=== PATIENT | male | born 1970 | race Hispanic/Latino ===

== ENCOUNTER 2018-02-19 12:54 | Emergency (ER) | payer MEDICAID ==
[2018-02-19 13:11] VITALS: TEMP 98.5; O2SAT 100
--- NOTE | 2018-02-19 14:26 | ED PDOC ---
Upper Extremity Pain/Injury Time Seen by Provider: 02/19/18 13:28 Chief Complaint (Nursing): Upper Extremity Problem/Injury Chief Complaint (Provider): Upper Extremity Problem/Injury History Per: Patient History/Exam Limitations: no limitations Onset/Duration Of Symptoms: Days (x4) Current Symptoms Are (Timing): Still Present Quality: "Pain" Additional Complaint(s): 48 year old male with a history of hypertension and depression presents to the ED with right arm swelling, redness and pain for 4 days associated dizziness. Patient states he injects himself with testosterone shots for low T in his deltoid area, his last injection was 7 days ago but symptoms started later. 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 He has managed his symptoms by himself, but has taken no pain medications. Patient works out does heavy lifting but has no recollection of an episode of injury after. He states he has had cellulitis in the past, but did not provide a reason why. He denies fever, chills injury, shortness of breath, chest pain or history of blood clots. PMD: no regular doctor Past Medical History Reviewed: Historical Data, Nursing Documentation, Vital Signs Vital Signs: Last Vital Signs Temp 98.5 F 02/19/18 13:08 Pulse 72 02/19/18 13:08 Resp 18 02/19/18 13:08 BP 133/80 02/19/18 13:08 Pulse Ox 100 02/19/18 13:08 - Medical History PMH: Depression, HTN - Surgical History Surgical History: Tonsillectomy Other surgeries: left elbow surgery - Family History Family History: States: Unknown Family Hx - Immunization History Hx Tetanus Toxoid Vaccination: (not sure) - Home Medications Home Medications: Ambulatory Orders Medication Instructions Recorded Amoxicillin/Potassium Clav 1 tab PO TID #30 tab 03/21/15 [Augmentin 500 mg-125 mg] Naproxen [Naprosyn] 500 mg PO Q12H #20 tab 03/21/15 Sulfamethoxazole/Trimethoprim 1 tab PO BID #14 tab 02/19/18 [Bactrim DS 800 mg-160 mg] - Allergies Allergies/Adverse Reactions: Allergies Allergy/AdvReac Type Severity Reaction Status Date / Time No Known Allergies Allergy Verified 02/19/18 13:08 Review of Systems ROS Statement: Except As Marked, All Systems Reviewed And Found Negative Constitutional: Negative for: Fever, Chills Cardiovascular: Negative for: Chest Pain Respiratory: Negative for: Shortness of Breath Musculoskeletal: Positive for: Arm Pain (right arm pain, swelling and redness) Skin: Positive for: Other (scars on left hand) Physical Exam - Reviewed Nursing Documentation Reviewed: Yes Vital Signs Reviewed: Yes - Physical Exam Appears: Positive for: No Acute Distress (comfortable) Head Exam: Positive for: ATRAUMATIC, NORMOCEPHALIC Eye Exam: Positive for: Normal appearance, EOMI, PERRL Neck: Positive for: Normal Extremity: Positive for: Tenderness (mild in right arm ), Swelling (mild swelling starting from mid upper arm extending throughout forearm), Other (Right arm: mild erythema, normal pulses, no crepitus, small area of ecchymosis on the dorsum of the forearm, and full ROM) Neurologic/Psych: Positive for: Alert, Oriented (x3). Negative for: Motor/Sensory Deficits - Laboratory Results Result Diagrams: 02/19/18 14:20 02/19/18 14:20 - ECG O2 Sat by Pulse Oximetry: 100 (RA) Pulse Ox Interpretation: Normal Medical Decision Making Medical Decision Making: Time: 1414 Initial Impression: Right arm swelling Differential diagnoses include but are not limited to: DVT, soft tissue hemorrhage, cellulitis, muscle tear Initial Plan: --CT right upper extremity --BMP --CBC with differentials --PTT --PT --Right forearm XR --Right humerus XR --Right upper duplex Time: 1446 --Right forearm and humerus XR demonstrate no fractures or dislocations. Time: 1500 --Patient signed out to Dr. Navarrete by this provider, pending CT, US, and labs. Scribe Attestation: Documented by Pricilla Prasad, acting as a scribe for Adair Vincent MD Provider Scribe Attestation: All medical record entries made by the Scribe were at my direction and personally dictated by me. I have reviewed the chart and agree that the record accurately reflects my personal performance of the history, physical exam, medical decision making, and the department course for this patient. I have also personally directed, reviewed, and agree with the discharge instructions and disposition. Disposition - Clinical Impression Clinical Impression: Arm swelling, Cellulitis - Patient ED Disposition Is Patient to be Admitted: Transfer of Care Counseled Patient/Family Regarding: Studies Performed, Diagnosis - Disposition Disposition: Transfer of Care Disposition Time: 15:00 Condition: STABLE Additional Instructions: Take antibiotics as prescribed. Keep arm elevated to reduce swelling. Return to the emergency department if you develop SOB, chest pain, fever, worsened swelling, numbness of cold to the hand, or other new symptoms. Follow up with primary medical doctor in one week. Prescriptions: Sulfamethoxazole/Trimethoprim [Bactrim DS 800 mg-160 mg] 1 tab PO BID #14 tab Instructions: Cellulitis (Skin Infection), Adult (DC) Forms: [employer] (Croatian) Print Language: SAMOAN Patient Signed Over To: Hallie Navarrete
[2018-02-19 14:33] LABS: BASO # 0.1 K/uL (0.0-0.2); BASO % 0.8 % (0.0-2.0); EOS # 0.1 K/uL (0.0-0.7); EOS % 1.2 % (0.0-4.0); HEMOGLOBIN 16.7 g/dL (12.0-18.0); LYMPH # 1.6 K/uL (1.0-4.3); LYMPH % 18.6 % (20.0-40.0); MEAN CELL VOLUME 89.8 fl (80.0-94.0); MEAN CORPUSCULAR HGB CONC 33.4 g/dL (33.0-37.0); MEAN PLATELET VOLUME 9.4 fl (7.2-11.7); MONO # 0.4 K/uL (0.0-0.8); NEUT # 6.5 K/uL (1.8-7.0); NEUT % 74.4 % (50.0-75.0); NRBC % 0.7 % (0.0-0.0); RBC 5.57 Mil/uL (4.40-5.90); RED CELL DISTRIBUTION WIDTH 14.7 % (11.5-14.5); WHITE BLOOD COUNT 8.7 K/uL (4.8-10.8)
[2018-02-19 14:38] LABS: PROTHROMBIN TIME 11.4 Seconds (9.8-13.1)
[2018-02-19 14:41] LABS: PARTIAL THROMBOPLASTIN TIME 37.9 Seconds (25.6-37.1)
[2018-02-19 14:47] LABS: BLOOD UREA NITROGEN 11 mg/dl (9-20); CALCIUM 9.5 mg/dL (8.4-10.2); GFR NON-AFRICAN AMERICAN > 60
[2018-02-19] MEDS ORDERED: Iohexol 300 100 ML IJ ONE (15:19)
[2018-02-19] MEDS ORDERED: Sodium Chloride 0.9% 100 ML ONE (15:20)
--- NOTE | 2018-02-19 15:20 | ED PDOC ---
- Laboratory Results Result Diagrams: 02/19/18 14:20 02/19/18 14:20 - ECG O2 Sat by Pulse Oximetry: 100 (RA) Pulse Ox Interpretation: Normal Medical Decision Making Medical Decision Making: Time: 1500 --Patient signed out to this provider by Dr. Vincent, pending CT, US, and labs. Time: 1626 Upper extrem US FINDINGS: Good compressibility, augmentation and normal phasic blood flow is identified at the right internal jugular, subclavian, axillary, brachial and basilic veins as well as the cephalic ulnar, and radial veins. No sonographic evidence to suggest deep venous thrombosis. IMPRESSION: No sonographic evidence to suggest deep venous thrombosis right upper extremity as described above. Time: 1641 --Patients US shows no evidence of DVT. He is refusing CT and states he just wants antibiotics. Pt to get one dose of IV antibiotics in the ED. Patient advised to return if symptoms worsen or new ones develop. He will follow up with his PMD this upcoming week. Scribe Attestation: Documented by Pricilla Prasad, acting as a scribe for Hallie Navarrete MD Provider Scribe Attestation: All medical record entries made by the Scribe were at my direction and personally dictated by me. I have reviewed the chart and agree that the record accurately reflects my personal performance of the history, physical exam, medical decision making, and the department course for this patient. I have also personally directed, reviewed, and agree with the discharge instructions and disposition. Disposition - Clinical Impression Clinical Impression: Arm swelling, Cellulitis - Disposition Disposition Time: 16:41 Condition: STABLE Additional Instructions: Take antibiotics as prescribed. Keep arm elevated to reduce swelling. Return to the emergency department if you develop SOB, chest pain, fever, worsened swelling, numbness of cold to the hand, or other new symptoms. Follow up with primary medical doctor in one week. Prescriptions: Sulfamethoxazole/Trimethoprim [Bactrim DS 800 mg-160 mg] 1 tab PO BID #14 tab Instructions: Cellulitis (Skin Infection), Adult (DC) Forms: [employer] (Libyan) Print Language: HUNGARIAN
--- NOTE | 2018-02-19 15:28 | RAD ---
PROCEDURE: Radiographs of the Right Forearm HISTORY: right arm swellling COMPARISON: None available. TECHNIQUE: Frontal and lateral views obtained. FINDINGS: BONES: No fracture or destructive lesion. JOINT SPACES: Unremarkable. OTHER FINDINGS: None. IMPRESSION: Unremarkable radiographs of the right forearm.
--- NOTE | 2018-02-19 15:28 | RAD ---
PROCEDURE: Radiographs of the right humerus. HISTORY: arm pain swelling COMPARISON: None. FINDINGS: BONES: Normal. No fracture or focal lesion. SOFT TISSUES: Normal. OTHER FINDINGS: None. IMPRESSION: Normal radiographs of right humerus.
--- NOTE | 2018-02-19 16:29 | US ---
Date of service: 02/19/2018 PROCEDURE: RIGHT UPPER EXTREMITY VENOUS ULTRASOUND HISTORY: right arm swelling COMPARISON: None available. TECHNIQUE: Grayscale and duplex Doppler ultrasonography was performed on the major veins of the right upper extremity including graded compression and augmentation. No prior comparison available. FINDINGS: Good compressibility, augmentation and normal phasic blood flow is identified at the right internal jugular, subclavian, axillary, brachial and basilic veins as well as the cephalic ulnar, and radial veins. No sonographic evidence to suggest deep venous thrombosis. IMPRESSION: No sonographic evidence to suggest deep venous thrombosis right upper extremity as described above.
[2018-02-19 17:56] VITALS: BP 127/88; PULSE 70; RESP 20
== END 2018-02-19 18:08 | disposition home or self-care (01) ==
LOC: H.ER 12:54
DX: L03.113 Cellulitis of right upper limb (principal); M79.89 Other specified soft tissue disorders; Z86.59 Personal history of other mental and behavioral disorders; I10 Essential (primary) hypertension
CPT/HCPCS: 73060; 73090; 80048; 85025; 85610; 85730; 93971; 96374; 99283; J0295; Q9967